=== PATIENT | male | born 1980 | race Caucasian/White ===

== ENCOUNTER 2024-11-28 00:22 | Emergency (ER) | payer BC ==
[2024-11-28] MEDS ORDERED: Bupivacaine PF 0.5% 30 ML VIAL ONE (02:31)
== END 2024-11-28 03:38 | disposition home or self-care (01) ==
LOC: CSHERS 00:22
DX: K04.7 Periapical abscess without sinus (principal)
CPT/HCPCS: 64400; 99282; J0665